=== PATIENT | female | born 1945 | race Caucasian/White ===

== ENCOUNTER 2017-04-29 13:17 | Inpatient (IN) ==
[2017-04-29] MEDS ORDERED: Naloxone 0.4 MG/ML INJ IVP PRN (16:11)
[2017-04-29] MEDS ORDERED: Acetaminophen 325 MG TABLET PO PRN (16:11)
[2017-04-29] MEDS ORDERED: Lacri-Lube 3.5 GM TUBE BOTH EYES PRN (16:17)
[2017-04-29 16:54] LABS: ABG Base Excess -3 mEq/L (-2 to 3); ABG HCO3 21 mEq/L (21-27); ABG Oxygen Saturation 95 % (95-98); ABG PCO2 33 mmHg (35-45); ABG PH 7.41 pH Units (7.32-7.45); ABG PO2 74 mmHg (85-104); ABG TCO2 22 mEq/L (20-26); Blood Gas Modality VC; Blood Gas PEEP 5 cm H2O; Blood Gas Respiration Rate 12; Blood Gas VT 500 cc
[2017-04-29] MEDS: FentaNYL (PF) 1,000 MCG in 0.9 % Sodium Chloride 80 ML IVC SCH (17:18)
--- NOTE | 2017-04-29 17:27 | Pulmonology History & Physical ---
Date of Encounter: 04/29/17 Time of Encounter: 04:35 Assessment and Plan (1) Acute respiratory failure Current visit: Yes Status: Acute Patient with acute respiratory failure and she was intubated for airway protection and she was found to be acidotic. Patient is unresponsive at this time and is not clear to me whether this postictal or medications. Patient remain on the mechanical invasive ventilation for now and since she is not requiring significant support we will await until find out more about pleural effusion and I have explained to the family she might need chest tube. I spent 45 min of Critical Care time with this patient. It involved decision making of high complexity to assess, manipulate, and support vital organ system failure and/or to prevent further life threatening deterioration of the patient' s condition. The time involved in the performance of separately reportable procedures was not counted toward critical care time. Qualifiers: Respiratory failure complication: hypoxia Qualified Code(s): J96.01 - Acute respiratory failure with hypoxia (2) Altered mental state Current visit: Yes Status: Acute This is an acute episode and differential diagnosis is broad and initial CT head is not significant however there is changes in her blood pressure and she remains unresponsive for that reason we will repeat CT chest and she might even need MRI and neurology consultation I have explained that to the family Bolgarry encephalopathy and even subclinical seizure is also in the differential diagnosis and patient will be on sedation if it is seizure related then that might help and would also consider EEG. Qualifiers: Altered mental status type: stupor Qualified Code(s): R40.1 - Stupor (3) Pleural effusion Current visit: Yes Status: Acute Bilateral pleural effusion which has been drained and suspect this could be malignant and possible chest tube placement. (4) Renal cell cancer Current visit: No Status: Acute Qualifiers: Laterality: left Qualified Code(s): C64.2 - Malignant neoplasm of left kidney, except renal pelvis (5) Hypertension Current visit: Yes Status: Chronic Is not clear to me whether this is related to intracranial pathology or stress related for that reason we will for now and treat accordingly. Qualifiers: Hypertension type: unspecified Qualified Code(s): I10 - Essential (primary ) hypertension (6) Lactic acid acidosis Current visit: Yes Status: Acute Even though sepsis is less likely I would empirically treat with broad-spectrum antibiotics and culture and if blood pressure drops then will give her fluid. Most likely this could be seizure related and will have a follow-up lactic acid and also check creatinine kinase for any evidence of rhabdomyolysis. History of Present Illness Chief complaint: Alter Mental status HPI: Ms. Mitchell is a 71 year old female that she is not able to give history because she is intubated and not responsive. This history is taken from the and the family at the bedside. Apparently patient was at her usual status until about 10 PM last night and the found her unresponsive this morning and need to convert to outside hospital. I was told patient had seizure and she was treated and then she was intubated for airway protection. When patient has arrived to ICU she is not following any commands. Patient has diagnosis of renal cell cancer according to the family and she had been having thoracentesis at least twice recently. Patient was not in any distress according to the family and they denies any productive cough or sputum. She was not suffering from any fever or chills. Past Med Surg Social Fam HX - Past Medical History Medical history: arthritis, cancer, diabetes, hyperlipidemia, hypertension Psychiatric history: no psych history - Social History Smoking Status: Former smoker Smokeless Tobacco Status: No Alcohol use: none Drug use: none - Family History Mother Living Status: Hx Family Cancer: Yes Brother Living Status: Hx Family Cancer: Yes Sister Hx Family Cancer: Yes Medications and Allergies Lisinopril [Zestril] 40 mg PO DAILY 02/17/17 [History] Multivit-Min/Iron Fum/Folic AC [Vcrzx-Kjtsyrt-Mxktpycc Tablet] 1 tab PO DAILY [History] Simvastatin [Zocor] 40 mg PO HS 02/17/17 [History] metFORMIN [Glucophage] 500 mg PO BIDWM 02/17/17 [History] Ondansetron [Zofran] 8 mg PO Q8HR PRN #90 tablet 03/24/17 [Rx] Promethazine [Phenergan] 25 mg PO Q8HR PRN #90 tablet 03/24/17 [Rx] LORazepam [Ativan] 0.5 mg PO BID PRN #60 tablet 04/22/17 [Rx] Megestrol Acetate [Megace] 400 mg PO BID #400 mls 04/22/17 [Rx] OxyCODONE Immed Rel [Roxicodone 5 MG] 10 mg PO BID PRN #60 tablet 04/22/17 [Rx] 3 Allergy/AdvReac Type Severity Reaction Status Date / Time No Known Allergies Allergy Verified 04/22/17 10:48 ROS unobtainable: due to endotracheal tube, due to mental status All Systems: A 10-system review of systems was performed and is negative for pertinent findings except as documented above in the HPI. Physical Examination Vital Signs: Vital Signs, Last 4 Hours Resp BP Pulse Ox 04/29/17 17:00 12 143/86 95 04/29/17 15:26 17 197/107 97 General appearance: comatose Eyes: nonicteric ENT: oropharynx moist Effort: normal Inspection: normal Auscultation: bilateral: diminished breath sounds Percussion: bilateral: dull Cardiovascular: regular rate and rhythm Gastrointestinal: normoactive bowel sounds, non-distended Extremities: no cyanosis, edema Results - Laboratory Findings ABG ABG pH 7.41 pH Units (7.32-7.45) 04/29/17 16:51 ABG pCO2 33 mmHg (35-45) L 04/29/17 16:51 ABG pO2 74 mmHg (85-104) L D 04/29/17 16:51 ABG O2 Saturation 95 % (95-98) 04/29/17 16:51 Abnormal lab findings: Abnormal lab results ABG pCO2 33 mmHg (35-45) L 04/29/17 16:51 ABG pO2 74 mmHg (85-104) L D 04/29/17 16:51 ABG Base Excess -3 mEq/L (-2 to 3) L 04/29/17 16:51 - Diagnostic Findings CT scan - chest: report reviewed, image reviewed
[2017-04-29] MEDS ORDERED: Ringers Solution, Lactated 1,000 ML IVC ONE (19:00)
[2017-04-29] MEDS ORDERED: Ringers Solution, Lactated 1,000 ML ONE (19:03)
[2017-04-29] MEDS ORDERED: D5% in Water 1,000 ML IVC PRN (19:09)
[2017-04-29] MEDS ORDERED: *HR* Dextrose 50 % in Water (Syg) 50 ML SYRINGE IVP PRN (19:09)
[2017-04-29] MEDS ORDERED: Dextrose Gel 15 GM/37.5 ML TUBE PO PRN ×2 (19:09)
[2017-04-29] MEDS: Piperacillin/Tazobactam 3.375 GM/200 ML BAG IVPB SCH (19:18)
[2017-04-29] MEDS ORDERED: 0.9 % Sodium Chloride 1,000 ML ONE (19:19)
[2017-04-29] MEDS: Ringers Solution, Lactated 1,000 ML IVC SCH (21:00)
[2017-04-29] MEDS ORDERED: 0.9 % Sodium Chloride 1,000 ML IVC ONE (21:45)
[2017-04-29] MEDS: Insulin LISPRO 300 UNITS/3 ML VIAL SQ SCH (21:46)
[2017-04-29] MEDS: Chlorhexidine Rinse 15 ML MOUTHWASH MM SCH (22:02)
[2017-04-29] MEDS: *HR* Heparin 5,000 UNIT/ML VIAL SQ SCH (22:02)
[2017-04-29] MEDS: Lacri-Lube 3.5 GM TUBE BOTH EYES SCH (22:02)
[2017-04-30] MEDS: Lacri-Lube 3.5 GM TUBE BOTH EYES SCH ×6 (00:17→19:40)
[2017-04-30] MEDS: Insulin LISPRO 300 UNITS/3 ML VIAL SQ SCH ×6 (00:22→19:41)
[2017-04-30] MEDS: Ringers Solution, Lactated 1,000 ML IVC SCH ×4 (01:04→22:15)
[2017-04-30] MEDS: Piperacillin/Tazobactam 3.375 GM/200 ML BAG IVPB SCH ×3 (03:29→19:13)
[2017-04-30 04:06] LABS: ABG Base Excess -1 mEq/L (-2 to 3); ABG HCO3 22 mEq/L (21-27); ABG Oxygen Saturation 96 % (95-98); ABG PCO2 33 mmHg (35-45); ABG PH 7.44 pH Units (7.32-7.45); ABG PO2 78 mmHg (85-104); ABG TCO2 23 mEq/L (20-26); Blood Gas Modality VC; Blood Gas PEEP 5 cm H2O; Blood Gas Respiration Rate 12; Blood Gas VT 500 cc
[2017-04-30 04:56] LABS: Basophils % 0.2 %; Hematocrit 33.1 % (35.3-44.9); Hemoglobin 10.1 g/dL (11.5-15.4); Immature Granulocytes % 0.3 % (0-4); Lymphocytes # 1.7 K/mcL (0.6-4.6); Lymphocytes % 27.5 %; Mean Corpuscular HGB Conc 30.5 g/dL (31.6-35.5); Mean Corpuscular Hemoglobin 26.8 pg (28.0-33.3); Mean Corpuscular Volume 87.8 fL (83.0-100.0); Mean Platelet Volume 9.7 fL (9.4-12.4); Monocytes # 0.5 K/mcL (0.0-1.3); Monocytes % 8.5 %; Neutrophils # 3.8 K/mcL (1.6-8.9); Platelet Count 154 K/mcL (140-400); Red Blood Count 3.77 M/mcL (3.82-4.97); Red Cell Distribution Width 26.8 % (11.5-14.5); Segmented Neutrophils % 63.5 %
[2017-04-30 05:08] LABS: Alanine Aminotransferase 11 Units/L (7-52); Albumin 2.4 g/dL (3.5-5.7); Alkaline Phosphatase 66 Units/L (34-104); Aspartate Amino Transferase 19 Units/L (13-39); BUN/Creatinine Ratio 15 (6-26); Bilirubin,Total 0.6 mg/dL (0.3-1.0); Blood Urea Nitrogen 11 mg/dL (8-23); Calcium 7.1 mg/dL (8.6-10.3); Carbon Dioxide 24 mEq/L (23-29); Chloride 111 mEq/L (98-107); Globulin 2.4 g/dL (2.4-3.5); Glucose 90 mg/dL (70-105); Osmolality,Calculated 293 (280-300); Potassium 3.5 mEq/L (3.5-5.1); Sodium 142 mEq/L (136-145); Total Protein 4.8 g/dL (6.4-8.9); eGFR For African Americans > 60 (> 60); eGFR For Non-African Americans > 60 (> 60)
[2017-04-30 05:23] LABS: Acanthocytes 1+ (Not Present); Anisocytosis 2+ (Not Present); Macrocytosis Present (Not Present); Polychromasia 1+ (Not Present)
[2017-04-30 05:24] LABS: Burr Cells 2+ (Not Present); Platelet Estimate Normal (Normal)
[2017-04-30 05:25] LABS: Poikilocytosis 1+ (Not Present)
[2017-04-30] MEDS: *HR* Heparin 5,000 UNIT/ML VIAL SQ SCH ×3 (06:11→22:17)
[2017-04-30] MEDS: Chlorhexidine Rinse 15 ML MOUTHWASH MM SCH ×2 (08:06→21:14)
[2017-04-30] MEDS: Pantoprazole 40 MG VIAL IVP SCH (08:07)
--- NOTE | 2017-04-30 10:22 | Pulmonology Progress Note ---
Date of Encounter: 04/30/17 Time of Encounter: 07:30 Assessment and Plan (1) Acute respiratory failure Current Visit: Yes Status: Acute Patient with acute respiratory failure and she was intubated for airway protection and she was found to be acidotic. Patient is unresponsive at this time and is not clear to me whether this postictal or medications. Patient remain on the mechanical invasive ventilation for now and since she is not requiring significant support we will await until find out more about pleural effusion and I have explained to the family she might need chest tube. I spent 45 min of Critical Care time with this patient. It involved decision making of high complexity to assess, manipulate, and support vital organ system failure and/or to prevent further life threatening deterioration of the patient' s condition. The time involved in the performance of separately reportable procedures was not counted toward critical care time. 04/30 patient remain on the ventilator however she is doing better and spontaneous breathing trial and initiated and possible extubation depends on the transportation for the MRI. Qualifiers: Respiratory failure complication: hypoxia Qualified Code(s): J96.01 - Acute respiratory failure with hypoxia (2) Altered mental state Current Visit: Yes Status: Resolved This is an acute episode and differential diagnosis is broad and initial CT head is not significant however there is changes in her blood pressure and she remains unresponsive for that reason we will repeat CT chest and she might even need MRI and neurology consultation I have explained that to the family Bolgarry encephalopathy and even subclinical seizure is also in the differential diagnosis and patient will be on sedation if it is seizure related then that might help and would also consider EEG. 04/30 has improved significantly and due to her acute presentation and stroke is still in the differential diagnosis and also history of malignancy to rule out any metastasis MRIs been ordered. Consider neurology consultation Qualifiers: Altered mental status type: stupor Qualified Code(s): R40.1 - Stupor (3) Pleural effusion Current Visit: Yes Status: Acute Bilateral pleural effusion which has been drained and suspect this could be malignant and possible chest tube placement. 04/30 she since she is not in distress will monitor and plan for thoracentesis (4) Renal cell cancer Current Visit: No Status: Acute Qualifiers: Laterality: left Qualified Code(s): C64.2 - Malignant neoplasm of left kidney, except renal pelvis (5) Hypertension Current Visit: Yes Status: Chronic Is not clear to me whether this is related to intracranial pathology or stress related for that reason we will for now and treat accordingly. Qualifiers: Hypertension type: unspecified Qualified Code(s): I10 - Essential (primary ) hypertension (6) Lactic acid acidosis Current Visit: Yes Status: Acute Even though sepsis is less likely I would empirically treat with broad-spectrum antibiotics and culture and if blood pressure drops then will give her fluid. Most likely this could be seizure related and will have a follow-up lactic acid and also check creatinine kinase for any evidence of rhabdomyolysis. Subjective Principal diagnosis: Altered mental status Interval history: Patient is awake now and follows commands Objective PUL Vital signs: Last Vital Signs Temp 98.6 F 04/30/17 08:41 Pulse 64 04/30/17 08:00 Resp 14 04/30/17 08:00 BP 137/72 04/30/17 08:00 Pulse Ox 93 04/30/17 08:00 General appearance: no acute distress Eyes: nonicteric Neck: supple Effort: normal Auscultation: bilateral: diminished breath sounds Percussion: left: not dull, right: dull Cardiovascular: regular rate and rhythm Gastrointestinal: normoactive bowel sounds, non-distended Extremities: no cyanosis, edema normal mental status, non-focal exam anxious Ventilator Settings Ventilator Settings: Ventilator Settings, Last 8 Hours Ventilator Mode VC+ Ventilator Mode VC+ Ventilator Mode VC+ Ventilator Mode VC+ Ventilator Mode VC+ Ventilator Mode VC+ Ventilator Tidal Volume 500 Setting Ventilator Tidal Volume 500 Setting Ventilator Tidal Volume 500 Setting Ventilator Tidal Volume 500 Setting Ventilator Tidal Volume 500 Setting Ventilator Tidal Volume 500 Setting Ventilator Respiratory Rate 12 Setting Ventilator Respiratory Rate 12 Setting Ventilator Respiratory Rate 12 Setting Ventilator Respiratory Rate 12 Setting Ventilator Respiratory Rate 12 Setting Ventilator Respiratory Rate 12 Setting Actual Respiratory Rate 12 Actual Respiratory Rate 12 Actual Respiratory Rate 12 Actual Respiratory Rate 12 Actual Respiratory Rate 12 Positive End Expiratory 5 Pressure Positive End Expiratory 5 Pressure Positive End Expiratory 5 Pressure Positive End Expiratory 5 Pressure Positive End Expiratory 5 Pressure Positive End Expiratory 5 Pressure Peak Inspiratory Airway 22 Pressure Peak Inspiratory Airway 21 Pressure Peak Inspiratory Airway 22 Pressure Peak Inspiratory Airway 21 Pressure Peak Inspiratory Airway 23 Pressure Peak Inspiratory Airway 23 Pressure Results - Laboratory Findings CBC and BMP: 04/30/17 04:40 04/30/17 04:40 ABG ABG pH 7.44 pH Units (7.32-7.45) 04/30/17 04:03 ABG pCO2 33 mmHg (35-45) L 04/30/17 04:03 ABG pO2 78 mmHg (85-104) L 04/30/17 04:03 ABG O2 Saturation 96 % (95-98) 04/30/17 04:03 Abnormal lab findings: Abnormal lab results RBC 3.77 M/mcL (3.82-4.97) L 04/30/17 04:40 Hgb 10.1 g/dL (11.5-15.4) L D 04/30/17 04:40 Hct 33.1 % (35.3-44.9) L 04/30/17 04:40 MCH 26.8 pg (28.0-33.3) L 04/30/17 04:40 MCHC 30.5 g/dL (31.6-35.5) L 04/30/17 04:40 RDW 26.8 % (11.5-14.5) H 04/30/17 04:40 Polychromasia 1+ (Not Present) A 04/30/17 04:40 Poikilocytosis 1+ (Not Present) A 04/30/17 04:40 Anisocytosis 2+ (Not Present) A 04/30/17 04:40 Macrocytosis Present (Not Present) A 04/30/17 04:40 Zita Cells 2+ (Not Present) A 04/30/17 04:40 Acanthocytes (Spur) 1+ (Not Present) A 04/30/17 04:40 ABG pCO2 33 mmHg (35-45) L 04/30/17 04:03 ABG pO2 78 mmHg (85-104) L 04/30/17 04:03 Chloride 111 mEq/L (98-107) H 04/30/17 04:40 Calcium 7.1 mg/dL (8.6-10.3) L 04/30/17 04:40 Troponin I 0.05 ng/mL (< 0.04) H* 04/30/17 04:40 Serum Total Protein 4.8 g/dL (6.4-8.9) L 04/30/17 04:40 Albumin 2.4 g/dL (3.5-5.7) L 04/30/17 04:40 Albumin/Globulin Ratio 1.0 (1.1-2.2) L 04/30/17 04:40 - Clinical Findings Intake & Output: Intake & Output 04/29/17 04/30/17 04/30/17 23:59 07:59 15:59 Intake Total 1200 / 1200 2235 / 2235 Output Total 150 / 150 475 / 475 50 / 50 Balance 1050 / 1050 1760 / 1760 -50 / -50 Weight 89.9 kg 89.7 kg Consult Discharge Plan - Plan Referrals: Zuleima Starks, PLC TECHNICIAN [Primary Care Provider] -
[2017-04-30] MEDS: Dexmedetomidine HCl 400 MCG/100 ML MLS IVC SCH (10:28)
[2017-04-30] MEDS: FentaNYL (PF) 1,000 MCG in 0.9 % Sodium Chloride 80 ML IVC SCH (19:14)
[2017-05-01] MEDS: Insulin LISPRO 300 UNITS/3 ML VIAL SQ SCH ×6 (00:43→19:46)
[2017-05-01] MEDS: Lacri-Lube 3.5 GM TUBE BOTH EYES SCH ×6 (00:43→19:46)
[2017-05-01] MEDS: Piperacillin/Tazobactam 3.375 GM/200 ML BAG IVPB SCH ×3 (02:22→18:22)
[2017-05-01] MEDS: Dexmedetomidine HCl 400 MCG/100 ML MLS IVC SCH ×2 (02:22→19:46)
[2017-05-01] MEDS: FentaNYL (PF) 1,000 MCG in 0.9 % Sodium Chloride 80 ML IVC SCH (02:28)
[2017-05-01 04:00] LABS: ABG Base Excess -1 mEq/L (-2 to 3); ABG HCO3 23 mEq/L (21-27); ABG Oxygen Saturation 96 % (95-98); ABG PCO2 32 mmHg (35-45); ABG PH 7.46 pH Units (7.32-7.45); ABG PO2 79 mmHg (85-104); ABG TCO2 24 mEq/L (20-26); Blood Gas Modality VC; Blood Gas PEEP 5 cm H2O; Blood Gas Respiration Rate 12; Blood Gas VT 500 cc
[2017-05-01] MEDS: Ringers Solution, Lactated 1,000 ML IVC SCH ×2 (04:29→15:15)
[2017-05-01] MEDS: *HR* Heparin 5,000 UNIT/ML VIAL SQ SCH ×3 (05:43→22:28)
--- NOTE | 2017-05-01 08:30 | Pulmonology Progress Note ---
<Rivera Carrasco - Last Filed: 05/01/17 09:21> Date of Encounter: 05/01/17 Time of Encounter: 07:00 Assessment and Plan (1) Altered mental state Current Visit: Yes Status: Resolved Initial head CT scan unremarkable. Possibly due to stroke or metastasis; patient has known hx. of RCC Patient's AMS appears to have resolved; much more responsive today than yesterday. -Possible EEG and MRI in the future to detemine etiology; r/o mets to brain -Neurology consulted; would appreciate recommendations. Qualifiers: Altered mental status type: stupor Qualified Code(s): R40.1 - Stupor (2) Pleural effusion Current Visit: No Status: Acute B/L pleural effusion which has been drained -Suspect this could be malignant; possible chest tube placement. -No current respiratory distress -Plan for thoracentesis (3) Hypertension Current Visit: Yes Status: Chronic Patient's last BP was 167/75. Qualifiers: Qualified Code(s): I10 - Essential (primary) hypertension (4) Renal cell cancer Current Visit: No Status: Acute Patient has known hx of RCC Qualifiers: Qualified Code(s): C64.9 - Malignant neoplasm of unspecified kidney, except renal pelvis (5) Lactic acid acidosis Current Visit: Yes Status: Acute Empirically being treated with zosyn Subjective Principal diagnosis: Altered mental status Interval history: Patient seen and examined at bedside this morning. Patient appears much more alert than she did yesterday. Plan is to extubate patient today. Objective PUL Vital signs: Last Vital Signs Temp 97.8 F 05/01/17 03:25 Pulse 60 05/01/17 06:00 Resp 25 05/01/17 06:13 BP 175/77 05/01/17 06:00 Pulse Ox 97 05/01/17 06:13 General appearance: no acute distress Eyes: nonicteric ENT: oropharynx moist Effort: normal Auscultation: bilateral: diminished breath sounds Cardiovascular: regular rate and rhythm Integumentary: normal Extremities: no cyanosis normal mental status Ventilator Settings Ventilator Settings: Ventilator Settings, Last 8 Hours Ventilator Mode VC+ Ventilator Mode VC+ Ventilator Mode VC+ Ventilator Mode VC+ Ventilator Mode VC+ Ventilator Tidal Volume 500 Setting Ventilator Tidal Volume 500 Setting Ventilator Tidal Volume 500 Setting Ventilator Tidal Volume 500 Setting Ventilator Tidal Volume 500 Setting Ventilator Respiratory Rate 12 Setting Ventilator Respiratory Rate 12 Setting Ventilator Respiratory Rate 12 Setting Ventilator Respiratory Rate 12 Setting Ventilator Respiratory Rate 12 Setting Actual Respiratory Rate 24 Actual Respiratory Rate 15 Actual Respiratory Rate 19 Positive End Expiratory 5 Pressure Positive End Expiratory 5 Pressure Positive End Expiratory 5 Pressure Positive End Expiratory 5 Pressure Positive End Expiratory 5 Pressure Peak Inspiratory Airway 18 Pressure Peak Inspiratory Airway 22 Pressure Peak Inspiratory Airway 22 Pressure Peak Inspiratory Airway 29 Pressure Results - Laboratory Findings CBC and BMP: 04/30/17 04:40 04/30/17 04:40 ABG ABG pH 7.46 pH Units (7.32-7.45) H 05/01/17 03:54 ABG pCO2 32 mmHg (35-45) L 05/01/17 03:54 ABG pO2 79 mmHg (85-104) L 05/01/17 03:54 ABG O2 Saturation 96 % (95-98) 05/01/17 03:54 Abnormal lab findings: Abnormal lab results RBC 3.77 M/mcL (3.82-4.97) L 04/30/17 04:40 Hgb 10.1 g/dL (11.5-15.4) L D 04/30/17 04:40 Hct 33.1 % (35.3-44.9) L 04/30/17 04:40 MCH 26.8 pg (28.0-33.3) L 04/30/17 04:40 MCHC 30.5 g/dL (31.6-35.5) L 04/30/17 04:40 RDW 26.8 % (11.5-14.5) H 04/30/17 04:40 Polychromasia 1+ (Not Present) A 04/30/17 04:40 Poikilocytosis 1+ (Not Present) A 04/30/17 04:40 Anisocytosis 2+ (Not Present) A 04/30/17 04:40 Macrocytosis Present (Not Present) A 04/30/17 04:40 Zita Cells 2+ (Not Present) A 04/30/17 04:40 Acanthocytes (Spur) 1+ (Not Present) A 04/30/17 04:40 ABG pH 7.46 pH Units (7.32-7.45) H 05/01/17 03:54 ABG pCO2 32 mmHg (35-45) L 05/01/17 03:54 ABG pO2 79 mmHg (85-104) L 05/01/17 03:54 Chloride 111 mEq/L (98-107) H 04/30/17 04:40 Calcium 7.1 mg/dL (8.6-10.3) L 04/30/17 04:40 Troponin I 0.05 ng/mL (< 0.04) H* 04/30/17 04:40 Serum Total Protein 4.8 g/dL (6.4-8.9) L 04/30/17 04:40 Albumin 2.4 g/dL (3.5-5.7) L 04/30/17 04:40 Albumin/Globulin Ratio 1.0 (1.1-2.2) L 04/30/17 04:40 - Clinical Findings Intake & Output: Intake & Output 04/30/17 05/01/17 05/01/17 23:59 07:59 15:59 Intake Total 1300 / 1300 1245 / 1245 600 / 600 Output Total 575 / 575 470 / 470 Balance 725 / 725 775 / 775 600 / 600 Weight 88.6 kg Consult Discharge Plan - Plan Referrals: Zuleima Starks, MATERIALS MANAGEMENT SUPERVISOR [Primary Care Provider] - <Husam Ramos - Last Filed: 05/01/17 09:59> Date of Encounter: 05/01/17 Assessment and Plan (1) Acute respiratory failure Current Visit: Yes Status: Acute Qualifiers: Respiratory failure complication: hypoxia Qualified Code(s): J96.01 - Acute respiratory failure with hypoxia (2) Altered mental state Current Visit: Yes Status: Resolved Qualifiers: Altered mental status type: stupor Qualified Code(s): R40.1 - Stupor (3) Pleural effusion Current Visit: No Status: Acute (4) Renal cell cancer Current Visit: No Status: Acute Qualifiers: Qualified Code(s): C64.9 - Malignant neoplasm of unspecified kidney, except renal pelvis (5) Hypertension Current Visit: Yes Status: Chronic Qualifiers: Qualified Code(s): I10 - Essential (primary) hypertension (6) Lactic acid acidosis Current Visit: Yes Status: Acute Objective PUL Vital signs: Last Vital Signs Temp 98.9 F 05/01/17 07:15 Pulse 53 05/01/17 09:00 Resp 16 05/01/17 09:00 BP 166/74 05/01/17 09:00 Pulse Ox 94 05/01/17 09:00 Ventilator Settings Ventilator Settings: Ventilator Settings, Last 8 Hours Ventilator Mode CPAP Ventilator Mode CPAP Ventilator Mode VC+ Ventilator Mode VC+ Ventilator Mode VC+ Ventilator Mode VC+ Ventilator Mode VC+ Ventilator Tidal Volume 500 Setting Ventilator Tidal Volume 500 Setting Ventilator Tidal Volume 500 Setting Ventilator Tidal Volume 500 Setting Ventilator Tidal Volume 500 Setting Ventilator Respiratory Rate 12 Setting Ventilator Respiratory Rate 12 Setting Ventilator Respiratory Rate 12 Setting Ventilator Respiratory Rate 12 Setting Ventilator Respiratory Rate 12 Setting Actual Respiratory Rate 20 Actual Respiratory Rate 15 Actual Respiratory Rate 24 Actual Respiratory Rate 15 Actual Respiratory Rate 19 Positive End Expiratory 5 Pressure Positive End Expiratory 5 Pressure Positive End Expiratory 5 Pressure Positive End Expiratory 5 Pressure Positive End Expiratory 5 Pressure Positive End Expiratory 5 Pressure Positive End Expiratory 5 Pressure Peak Inspiratory Airway 16 Pressure Peak Inspiratory Airway 15 Pressure Peak Inspiratory Airway 18 Pressure Peak Inspiratory Airway 22 Pressure Peak Inspiratory Airway 22 Pressure Peak Inspiratory Airway 29 Pressure Results - Laboratory Findings CBC and BMP: 04/30/17 04:40 04/30/17 04:40 ABG ABG pH 7.46 pH Units (7.32-7.45) H 05/01/17 03:54 ABG pCO2 32 mmHg (35-45) L 05/01/17 03:54 ABG pO2 79 mmHg (85-104) L 05/01/17 03:54 ABG O2 Saturation 96 % (95-98) 05/01/17 03:54 Abnormal lab findings: Abnormal lab results RBC 3.77 M/mcL (3.82-4.97) L 04/30/17 04:40 Hgb 10.1 g/dL (11.5-15.4) L D 04/30/17 04:40 Hct 33.1 % (35.3-44.9) L 04/30/17 04:40 MCH 26.8 pg (28.0-33.3) L 04/30/17 04:40 MCHC 30.5 g/dL (31.6-35.5) L 04/30/17 04:40 RDW 26.8 % (11.5-14.5) H 04/30/17 04:40 Polychromasia 1+ (Not Present) A 04/30/17 04:40 Poikilocytosis 1+ (Not Present) A 04/30/17 04:40 Anisocytosis 2+ (Not Present) A 04/30/17 04:40 Macrocytosis Present (Not Present) A 04/30/17 04:40 [place] Cells 2+ (Not Present) A 04/30/17 04:40 Acanthocytes (Spur) 1+ (Not Present) A 04/30/17 04:40 ABG pH 7.46 pH Units (7.32-7.45) H 05/01/17 03:54 ABG pCO2 32 mmHg (35-45) L 05/01/17 03:54 ABG pO2 79 mmHg (85-104) L 05/01/17 03:54 Chloride 111 mEq/L (98-107) H 04/30/17 04:40 Calcium 7.1 mg/dL (8.6-10.3) L 04/30/17 04:40 Troponin I 0.05 ng/mL (< 0.04) H* 04/30/17 04:40 Serum Total Protein 4.8 g/dL (6.4-8.9) L 04/30/17 04:40 Albumin 2.4 g/dL (3.5-5.7) L 04/30/17 04:40 Albumin/Globulin Ratio 1.0 (1.1-2.2) L 04/30/17 04:40 - Microbiology Findings Microbiology Findings: Microbiology, Last 48 Hours 04/29/17 17:32 Blood Culture - Preliminary Peripheral Venipuncture No growth. 04/29/17 17:32 Blood Culture - Preliminary Peripheral Venipuncture No growth. - Clinical Findings Intake & Output: Intake & Output 04/30/17 05/01/17 05/01/17 23:59 07:59 15:59 Intake Total 1300 / 1300 1305 / 1305 628 / 628 Output Total 575 / 575 795 / 795 Balance 725 / 725 510 / 510 628 / 628 Weight 88.6 kg - Attending Attestation I examined this patient and my medical decision-making was reviewed with the Resident Physician. I agree with the documented findings, disposition and treatment plan as described except to the extent set forth below. Patient seen and examined. Labs, radiology, chart personally reviewed. Agree with resident's history and physical, assessment, plan with following comments: HISTORIC INTERPRETER: Patient follows commands, much improved and neurology consultation Pulmonary: Acceptable oxygenation and ventilation. Patient extubated successfully. Pleural effusion may need Pleurx catheter. Cardiovascular: stable GI: Nutrition per dietary and GI prophylaxis per routine Heme: DVT prophylaxis per routine. Patient will need to follow up with her oncologist ID: Continue antibiotics and plan to de-escalation. Renal; urine out put and renal funtion reviewed Endorcine: blood glucose is monitored Lines: all lines checked and no evidence of infections Skin: skin care to prevent pressure ulcers per nursing routine care She will today and possible transfer to floor in next 24 hours
[2017-05-01] MEDS: Chlorhexidine Rinse 15 ML MOUTHWASH MM SCH ×2 (08:43→19:47)
[2017-05-01] MEDS: Pantoprazole 40 MG VIAL IVP SCH (08:43)
--- NOTE | 2017-05-01 12:38 | Neurology - Consult Note ---
Date of Encounter: 05/02/17 Time of Encounter: 10:50 Assessment and Plan (1) Encephalopathy Current Visit: Yes Status: Acute This patient who apparently had a history of renal cell cancer was admitted with acute unresponsiveness intubated earlier and now she is extubated and back to her baseline she seems to be alert and awake and oriented. Not able to determine that exactly what has happened though it was mentioned at outside emergency room that she may had a seizure but it was not witnessed by anyone in the family She did have a history of renal cell cancer and had a chemotherapy earlier but again does not seems to be related On today's examination I did not find any focal motor deficit to be suggestive of stroke Though it is possible that she may had a seizure and was in the prolonged postictal state, but again no redness and no typical signs symptoms of the seizure Regardless, CT scan was negative earlier for any acute bleed I would suggest getting an MRI of the brain with and without contrast suspect with a history of renal cancer to make sure that she did not have any metastatic disease or any other intracranial abnormality At the same time also get an EEG to look for any interictal abnormalities Check for any underlying metabolic abnormalities that may be causing and contributing to her symptoms Would not recommend starting on any anticonvulsant medication at this time, until any abnormality seen on EEG History of Present Illness HPI: Ms. Mitchell is a 71 year old female admitted with unresponsiveness, as per records she was in usual status found her unresponsive in the morning, she was seen at outside hospital was told patient had seizure and she was treated and then she was intubated for airway protection. When patient has arrived to ICU she is not following any commands. Patient has diagnosis of renal cell cancer according to the family and she had been having thoracentesis at least twice recently. there were no fever or chills. Later patient was extubated she is alert awake and oriented seemed to be back to her baseline she is not able to remember any of those events Past Med Surg Social Fam HX - Past Medical History Medical history: arthritis, cancer, diabetes, hyperlipidemia, hypertension Psychiatric history: no psych history - Social History Smoking Status: Former smoker Smokeless Tobacco Status: No Alcohol use: none Drug use: none - Family History Mother Living Status: Hx Family Cancer: Yes Brother Living Status: Hx Family Cancer: Yes Sister Hx Family Cancer: Yes Medications and Allergies Lisinopril [Zestril] 40 mg PO DAILY 02/17/17 [History] Multivit-Min/Iron Fum/Folic AC [Khmxr-Qsyfwcx-Kozyyhdc Tablet] 1 tab PO DAILY [History] Simvastatin [Zocor] 40 mg PO HS 02/17/17 [History] metFORMIN [Glucophage] 500 mg PO BIDWM 02/17/17 [History] Ondansetron [Zofran] 8 mg PO Q8HR PRN #90 tablet 03/24/17 [Rx] Promethazine [Phenergan] 25 mg PO Q8HR PRN #90 tablet 03/24/17 [Rx] LORazepam [Ativan] 0.5 mg PO BID PRN #60 tablet 04/22/17 [Rx] Megestrol Acetate [Megace] 400 mg PO BID #400 mls 04/22/17 [Rx] OxyCODONE Immed Rel [Roxicodone 5 MG] 10 mg PO BID PRN #60 tablet 04/22/17 [Rx] 3 Allergy/AdvReac Type Severity Reaction Status Date / Time No Known Allergies Allergy Verified 04/22/17 10:48 All Systems: A 10-system review of systems was performed and is negative for pertinent findings except as documented above in the HPI. Physical Examination - Vital Signs Vital Signs: Initial Vital Signs Resp BP Pulse Ox 17 197/107 97 04/29/17 15:26 04/29/17 15:26 04/29/17 15:26 - Constitutional General appearance: comfortable - Neurologic Sensorimotor examination: intact Detailed motor examination: grossly full strength in all extremities Motor examination - right side: 5/5: deltoids, biceps, triceps, wrist flexion, wrist extension, venture capitalist, hip flexors, tibialis Anterior, quadriceps, toe extension (EHL), plantarflexion Motor examination - left side: 5/5: deltoids, biceps, triceps, wrist flexion, wrist extension, hip flexors, venture capitalist, quadriceps, tibialis Anterior, toe extension (EHL), plantarflexion Detailed sensory examination: intact Reflexes: Biceps: 1+, Triceps: 1+, Brachioradialis: 1+, Patella: 1+, Achilles: 1 + Mental Status Examination: awake, alert, oriented to person, oriented to place, oriented to time, follows commands appropriately, answers questions appropriately, no agnosia, no aphasia, no aproxia Cranial nerve examination: PERRL, EOMI, visual morales intact, corneal reflexes brisk symmetrically, sensory to face intact, mastication intact, no facial asymmetry is present, no dysarthria, hearing is intact symmetrically, soft palate elevates bilaterally upon phonation, gag reflex intact, flexes SCM and trapezius muscles symmetrically with full power, tongue protrudes midline, no atrophy or facial fasiculations present Cerebellar examination: no dysmetria Results - Laboratory Findings CBC and BMP: 05/02/17 02:30 05/02/17 02:30 Abnormal lab findings: Abnormal lab results RBC 3.77 M/mcL (3.82-4.97) L 04/30/17 04:40 Hgb 10.1 g/dL (11.5-15.4) L D 04/30/17 04:40 Hct 33.1 % (35.3-44.9) L 04/30/17 04:40 MCH 26.8 pg (28.0-33.3) L 04/30/17 04:40 MCHC 30.5 g/dL (31.6-35.5) L 04/30/17 04:40 RDW 26.8 % (11.5-14.5) H 04/30/17 04:40 Polychromasia 1+ (Not Present) A 04/30/17 04:40 Poikilocytosis 1+ (Not Present) A 04/30/17 04:40 Anisocytosis 2+ (Not Present) A 04/30/17 04:40 Macrocytosis Present (Not Present) A 04/30/17 04:40 Zita Cells 2+ (Not Present) A 04/30/17 04:40 Acanthocytes (Spur) 1+ (Not Present) A 04/30/17 04:40 ABG pH 7.46 pH Units (7.32-7.45) H 05/01/17 03:54 ABG pCO2 32 mmHg (35-45) L 05/01/17 03:54 ABG pO2 79 mmHg (85-104) L 05/01/17 03:54 Chloride 111 mEq/L (98-107) H 04/30/17 04:40 Calcium 7.1 mg/dL (8.6-10.3) L 04/30/17 04:40 Troponin I 0.05 ng/mL (< 0.04) H* 04/30/17 04:40 Serum Total Protein 4.8 g/dL (6.4-8.9) L 04/30/17 04:40 Albumin 2.4 g/dL (3.5-5.7) L 04/30/17 04:40 Albumin/Globulin Ratio 1.0 (1.1-2.2) L 04/30/17 04:40 - Diagnostic Findings Additional findings: zct negative Consult Discharge Plan - Plan Referrals: Zuleima Starks, ALUMINUM WELDER [Primary Care Provider] -
[2017-05-02] MEDS: Piperacillin/Tazobactam 3.375 GM/200 ML BAG IVPB SCH ×3 (02:23→18:50)
[2017-05-02] MEDS: Insulin LISPRO 300 UNITS/3 ML VIAL SQ SCH ×6 (02:23→21:10)
[2017-05-02] MEDS: Lacri-Lube 3.5 GM TUBE BOTH EYES SCH ×6 (02:24→21:10)
[2017-05-02 02:55] LABS: Basophils % 0.3 %; Eosinophils % 0.3 %; Hemoglobin 9.8 g/dL (11.5-15.4); Immature Granulocytes % 0.5 % (0-4); Lymphocytes # 1.9 K/mcL (0.6-4.6); Lymphocytes % 30.9 %; Mean Corpuscular HGB Conc 29.7 g/dL (31.6-35.5); Mean Corpuscular Hemoglobin 26.2 pg (28.0-33.3); Mean Corpuscular Volume 88.2 fL (83.0-100.0); Mean Platelet Volume 10.9 fL (9.4-12.4); Monocytes # 0.5 K/mcL (0.0-1.3); Monocytes % 7.5 %; Neutrophils # 3.7 K/mcL (1.6-8.9); Nucleated Red Blood Cells 0.3 /100 WBC (0); Platelet Count 177 K/mcL (140-400); Red Blood Count 3.74 M/mcL (3.82-4.97); Red Cell Distribution Width 26.9 % (11.5-14.5); Segmented Neutrophils % 60.5 %
[2017-05-02 03:10] LABS: BUN/Creatinine Ratio 11 (6-26); Blood Urea Nitrogen 7 mg/dL (8-23); Calcium 7.4 mg/dL (8.6-10.3); Carbon Dioxide 24 mEq/L (23-29); Chloride 113 mEq/L (98-107); Glucose 74 mg/dL (70-105); Osmolality,Calculated 301 (280-300); Potassium 2.8 mEq/L (3.5-5.1); Sodium 147 mEq/L (136-145); eGFR For African Americans > 60 (> 60); eGFR For Non-African Americans > 60 (> 60)
[2017-05-02 03:34] LABS: Anisocytosis 2+ (Not Present); Platelet Estimate Normal (Normal); Polychromasia 1+ (Not Present)
[2017-05-02] MEDS: Ringers Solution, Lactated 1,000 ML IVC SCH (04:04)
[2017-05-02] MEDS ORDERED: Potassium Chloride 40 MEQ, Lidocaine 1% 2 ML in D5% in Water 500 ML IVPB ONE (04:28)
[2017-05-02] MEDS: *HR* Heparin 5,000 UNIT/ML VIAL SQ SCH ×3 (05:52→21:07)
--- NOTE | 2017-05-02 06:56 | Pulmonology Progress Note ---
Date of Encounter: 05/02/17 Time of Encounter: 06:56 Assessment and Plan (1) Acute respiratory failure Current Visit: Yes Status: Acute Patient was seen and evaluated and case discussed on multidisciplinary rounds in the intensive care unit Patient presented with altered mental status requiring intubation she has been successfully liberated from the ventilator and has excellent gas exchange on minimal supplemental oxygen which will be weaned to keep saturation around 92%. She does have bilateral pleural effusions and could consider Pleurx catheter as needed although I do not think that is clinically important right now Qualifiers: Respiratory failure complication: hypoxia Qualified Code(s): J96.01 - Acute respiratory failure with hypoxia (2) Renal cell cancer Current Visit: No Status: Acute Continue to follow outpatient with oncology Qualifiers: Qualified Code(s): C64.9 - Malignant neoplasm of unspecified kidney, except renal pelvis (3) Pleural effusion Current Visit: No Status: Acute Stable symptoms right now minimal oxygen requirements consider Pleurx down the line if needed (4) Hypertension Current Visit: Yes Status: Chronic Blood pressure is elevated today and we will resume her home antihypertensive regimen Qualifiers: Qualified Code(s): I10 - Essential (primary) hypertension (5) Lactic acid acidosis Current Visit: Yes Status: Acute This is resolved there is concern for sepsis and she was started on broad- spectrum antimicrobials think this is less likely and we will stop antibiotics today (6) Hypokalemia Current Visit: No Status: Acute Patient is receiving active supplementation repeat chemistry in the afternoon goal around 4 (7) Encephalopathy Current Visit: Yes Status: Acute This is a unclear etiology but possibly a seizure. Neurology has been consulted plan for MRI today she does not have a focal neurological deficit and CT of the head 2 have been unremarkable for acute process Subjective Principal diagnosis: Altered mental status Interval history: She is awake and alert today. She says that she still groggy and does not have a clear recollection of what paola into the hospital. She is hungry and wanting to eat. She denies headache chest pain or limb weakness. Overall is a very uneventful night per the nursing staff Objective PUL Vital signs: Last Vital Signs Temp 98.3 F 05/02/17 04:40 Pulse 77 05/02/17 06:00 Resp 16 05/02/17 06:00 BP 160/83 05/02/17 06:00 Pulse Ox 93 05/02/17 06:00 General appearance: no acute distress Eyes: nonicteric ENT: oropharynx moist Auscultation: bilateral: clear Cardiovascular: regular rate and rhythm Gastrointestinal: normoactive bowel sounds, soft, non-tender Integumentary: normal Extremities: no cyanosis, other (She has trace bilateral lower show any edema) Musculoskeletal: no deformities normal mental status, non-focal exam mood appropriate Results - Laboratory Findings CBC and BMP: 05/02/17 02:30 05/02/17 02:30 ABG ABG pH 7.46 pH Units (7.32-7.45) H 05/01/17 03:54 ABG pCO2 32 mmHg (35-45) L 05/01/17 03:54 ABG pO2 79 mmHg (85-104) L 05/01/17 03:54 ABG O2 Saturation 96 % (95-98) 05/01/17 03:54 Abnormal lab findings: Abnormal lab results RBC 3.74 M/mcL (3.82-4.97) L 05/02/17 02:30 Hgb 9.8 g/dL (11.5-15.4) L 05/02/17 02:30 Hct 33.0 % (35.3-44.9) L 05/02/17 02:30 MCH 26.2 pg (28.0-33.3) L 05/02/17 02:30 MCHC 29.7 g/dL (31.6-35.5) L 05/02/17 02:30 RDW 26.9 % (11.5-14.5) H 05/02/17 02:30 Nucleated RBCs/100 WBC 0.3 /100 WBC (0) H 05/02/17 02:30 Polychromasia 1+ (Not Present) A 05/02/17 02:30 Poikilocytosis 1+ (Not Present) A 04/30/17 04:40 Anisocytosis 2+ (Not Present) A 05/02/17 02:30 Macrocytosis Present (Not Present) A 04/30/17 04:40 Zita Cells 2+ (Not Present) A 04/30/17 04:40 Acanthocytes (Spur) 1+ (Not Present) A 04/30/17 04:40 ABG pH 7.46 pH Units (7.32-7.45) H 05/01/17 03:54 ABG pCO2 32 mmHg (35-45) L 05/01/17 03:54 ABG pO2 79 mmHg (85-104) L 05/01/17 03:54 Sodium 147 mEq/L (136-145) H 05/02/17 02:30 Potassium 2.8 mEq/L (3.5-5.1) L 05/02/17 02:30 Chloride 113 mEq/L (98-107) H 05/02/17 02:30 BUN 7 mg/dL (8-23) L 05/02/17 02:30 Calculated Osmolality 301 (280-300) H 05/02/17 02:30 Calcium 7.4 mg/dL (8.6-10.3) L 05/02/17 02:30 Troponin I 0.05 ng/mL (< 0.04) H* 04/30/17 04:40 Serum Total Protein 4.8 g/dL (6.4-8.9) L 04/30/17 04:40 Albumin 2.4 g/dL (3.5-5.7) L 04/30/17 04:40 Albumin/Globulin Ratio 1.0 (1.1-2.2) L 04/30/17 04:40 - Microbiology Findings Microbiology Findings: Microbiology, Last 48 Hours 04/29/17 17:32 Blood Culture - Preliminary Peripheral Venipuncture No growth. 04/29/17 17:32 Blood Culture - Preliminary Peripheral Venipuncture No growth. - Clinical Findings Intake & Output: Intake & Output 05/01/17 05/01/17 05/02/17 15:59 23:59 07:59 Intake Total 1230 / 1230 200 / 200 1000 / 1000 Output Total 2475 / 2475 1300 / 1300 1700 / 1700 Balance -1245 / -1245 -1100 / -1100 -700 / -700 Weight 86.8 kg Consult Discharge Plan - Plan Referrals: Zuleima Starks, AUTOMOTIVE SALES ASSOCIATE [Primary Care Provider] -
[2017-05-02 09:35] LABS: Magnesium 1.3 mg/dL (1.6-2.6)
[2017-05-02] MEDS: Pantoprazole 40 MG VIAL IVP SCH (10:57)
[2017-05-02] MEDS: Chlorhexidine Rinse 15 ML MOUTHWASH MM SCH ×2 (10:57→21:10)
--- NOTE | 2017-05-02 13:27 | Neurology Progress Note ---
Date of Encounter: 05/02/17 Time of Encounter: 08:00 Assessment and Plan (1) Encephalopathy Current Visit: Yes Status: Acute Patient is back to her baseline no evidence of any acute stroke on clinical exam as well as on MRI of the brain She is scheduled for EEG this morning we will follow up With the results At this time it is not clear that indeed she had a stroke or a seizure certainly no clinical sign of a stroke neither any signs of infarct on MRI of the brain Suggest to continue to treat underlying metabolic and infectious etiology as you already Subjective Principal diagnosis: Altered mental status Interval history: Patient seen as an follow-up she seemed to be doing well and denies any other new focal motor weakness no confusion no other motor deficit noted back to her baseline Objective - Constitutional Vitals: Temp Pulse Resp BP Pulse Ox 98.9 F 83 19 173/89 92 05/02/17 07:30 05/02/17 12:16 05/02/17 12:09 05/02/17 11:59 05/02/17 12:09 - Neurological Exam Motor Examination: Present: grossly full strength in all extremities Reflexes: Biceps: 1+, Triceps: 1+, Brachioradialis: 1+, Patella: 1+, Achilles: 1 + Mental Status Examination: Present: awake, alert, oriented to person, oriented to place Cranial nerve examination: Present: PERRL, EOMI, visual morales intact, no facial asymmetry is present, no dysarthria Results - Laboratory Findings CBC and BMP: 05/02/17 02:30 05/02/17 02:30 Abnormal lab findings: Abnormal lab results RBC 3.74 M/mcL (3.82-4.97) L 05/02/17 02:30 Hgb 9.8 g/dL (11.5-15.4) L 05/02/17 02:30 Hct 33.0 % (35.3-44.9) L 05/02/17 02:30 MCH 26.2 pg (28.0-33.3) L 05/02/17 02:30 MCHC 29.7 g/dL (31.6-35.5) L 05/02/17 02:30 RDW 26.9 % (11.5-14.5) H 05/02/17 02:30 Nucleated RBCs/100 WBC 0.3 /100 WBC (0) H 05/02/17 02:30 Polychromasia 1+ (Not Present) A 05/02/17 02:30 Poikilocytosis 1+ (Not Present) A 04/30/17 04:40 Anisocytosis 2+ (Not Present) A 05/02/17 02:30 Macrocytosis Present (Not Present) A 04/30/17 04:40 Zita Cells 2+ (Not Present) A 04/30/17 04:40 Acanthocytes (Spur) 1+ (Not Present) A 04/30/17 04:40 ABG pH 7.46 pH Units (7.32-7.45) H 05/01/17 03:54 ABG pCO2 32 mmHg (35-45) L 05/01/17 03:54 ABG pO2 79 mmHg (85-104) L 05/01/17 03:54 Sodium 147 mEq/L (136-145) H 05/02/17 02:30 Potassium 2.8 mEq/L (3.5-5.1) L 05/02/17 02:30 Chloride 113 mEq/L (98-107) H 05/02/17 02:30 BUN 7 mg/dL (8-23) L 05/02/17 02:30 Calculated Osmolality 301 (280-300) H 05/02/17 02:30 Calcium 7.4 mg/dL (8.6-10.3) L 05/02/17 02:30 Magnesium 1.3 mg/dL (1.6-2.6) L 05/02/17 02:30 Troponin I 0.05 ng/mL (< 0.04) H* 04/30/17 04:40 Serum Total Protein 4.8 g/dL (6.4-8.9) L 04/30/17 04:40 Albumin 2.4 g/dL (3.5-5.7) L 04/30/17 04:40 Albumin/Globulin Ratio 1.0 (1.1-2.2) L 04/30/17 04:40 - Diagnostic Findings Additional findings: MRI of the brain did not show any acute abnormality No evidence of metastatic disease or an acute infarct. 2. Cerebral and cerebellar parenchymal volume loss with mild chronic microvascular white matter ischemic disease. 3. There is scattered paranasal sinus disease, with greatest involvement in the ethmoid air cells and sphenoid sinuses, increased in severity. 4. There are small bilateral mastoid effusions. Consult Discharge Plan - Plan Referrals: Zuleima Starks CNP [Primary Care Provider] -
[2017-05-02 14:32] LABS: BUN/Creatinine Ratio 9 (6-26); Blood Urea Nitrogen 6 mg/dL (8-23); Calcium 7.7 mg/dL (8.6-10.3); Carbon Dioxide 23 mEq/L (23-29); Chloride 111 mEq/L (98-107); Glucose 104 mg/dL (70-105); Magnesium 1.6 mg/dL (1.6-2.6); Osmolality,Calculated 298 (280-300); Sodium 145 mEq/L (136-145); eGFR For African Americans > 60 (> 60); eGFR For Non-African Americans > 60 (> 60)
[2017-05-02] MEDS ORDERED: Potassium Chloride Elixir 20 MEQ/15 ML UDC PO ONE (15:03)
--- NOTE | 2017-05-02 16:25 | EEG/EMG/Oth Biometrics Report ---
EEG Procedure Report Date of procedure: 05/02/17 EEG Procedure: Routine EEG Procedure Note: Routine 21-channel digital EEG was obtained to rule out any seizure activity or focal abnormalities. FINDINGS: Background rhythm during awake stage shows well-organized, well- developed, average voltage 8 to 9 hertz alpha activity in the posterior regions. It blocks with eye opening and it is bilaterally synchronous and symmetrical. No [id number] discharges or any lateralizing abnormalities are seen. Photic stimulation did not produce any abnormalities. Hyperventilation was performed for 3 minutes. No abnormalities were found during the procedure. Intermittent EMG artifacts were seen. Stage II sleep was not achieved. IMPRESSION: Normal awake study. No epileptiform discharges or any other paroxysmal activities or focal abnormalities seen. Clinical correlation is recommended.
--- NOTE | 2017-05-02 18:13 | Oncology Inp Consult Note ---
Date of Encounter: 05/03/17 Time of Encounter: 17:00 Assessment and Plan (1) Renal cell cancer Status: Acute Assessment and plan: Metastatic kidney cancer-on pazopanib--hold further treatment due to recent acute events. Seizure/alteration in mental status, imaging data, EEG reviewed. Neurology recommendations noted. PAzopanib to be held (rare side effect sof seizure/PML). She was unable to tolerate 4 tab (800mg daily), will switch her to alternate therapy Thoracentesis/pleurex catheter to be considered for outpatient schedule Plan as above discussed with her, she will followed up as scheduled in clinic. Qualifiers: Qualified Code(s): C64.9 - Malignant neoplasm of unspecified kidney, except renal pelvis - Data of Consult Requesting Physician: Bradley Beatty MD Primary Care Provider: Zuleima Starks CNP - Consult Narrative Reason for consult: Renal cell cancer--seizures History of present illness: Ms. Mitchell is a 71 year old female with med hx significant for hypertension, hyperlipidemia, diabetes, endometrial hyperplasia with minimal atypia, bursitis of knee, right osteoarthritis of knee, Diverticulitis, who developed renal insuff, hypercalcemia in Feb, CT imaging of the abdomen showed 14 cm mass in the left kidney likely primary renal cell carcinoma, retroperitoneal lymphadenopathy and pulmonary nodules right-sided pleural effusion. She was transferred to [place] for biopsy and workup. The patient underwent a thoracentesis on 2016, urinalysis was negative. She further underwent a biopsy of the pleural-based lesion measuring 2.4 cm in size which was nondiagnostic but suspicious for metastatic renal cell carcinoma. She then underwent a CT-guided biopsy of the left kidney mass which reports is consistent with clear cell kidney cancer. Patient has had CT chest abdomen and pelvis here at [place], images reviewed. She had a CT scan of the head for delivery episodes which did not show any metastatic lesion. It appears patient did not have a MRI but had a bone scan reports of which is not available for me to review. CT scan of the chest abdomen pelvis showed a 15 cm lobulated heterogeneous mass occupying left renal parenchyma mild left retroperitoneal lymphadenopathy scattered pleural and parenchymal nodules moderate to large right pleural effusion cystic lesion in the left adnexa2.7 cm in sizeconsolidation in the right middle and lower lobe. 11/25 MRI lumbar spine--disc bulge and lumbar facet arthropathy. She started pazopanib 03/11/17. Dose reduction from 4 tablets to 2 tablets daily was made due to GI intolerance. Patient also had required thoracentesis for pleural effusion recommendation. She developed seizure episode, was noted to have electrolyte imbalance, MRI of the brain did not show any evidence of metastatic disease. Oncology consulted to give input regarding continuation of her medication for RCC. Past Med Surg Social Fam HX - Past Medical History Medical history: arthritis, cancer, diabetes, hyperlipidemia, hypertension Psychiatric history: no psych history - Social History Smoking Status: Former smoker Smokeless Tobacco Status: No Alcohol use: none Drug use: none - Family History Mother Living Status: Hx Family Cancer: Yes Brother Living Status: Hx Family Cancer: Yes Sister Hx Family Cancer: Yes Medications and Allergies Lisinopril [Zestril] 40 mg PO DAILY 02/17/17 [History] Multivit-Min/Iron Fum/Folic AC [Zennh-Vayzhvf-Zkhtdybn Tablet] 1 tab PO DAILY [History] Simvastatin [Zocor] 40 mg PO HS 02/17/17 [History] metFORMIN [Glucophage] 500 mg PO BIDWM 02/17/17 [History] Ondansetron [Zofran] 8 mg PO Q8HR PRN #90 tablet 03/24/17 [Rx] Promethazine [Phenergan] 25 mg PO Q8HR PRN #90 tablet 03/24/17 [Rx] LORazepam [Ativan] 0.5 mg PO BID PRN #60 tablet 04/22/17 [Rx] Megestrol Acetate [Megace] 400 mg PO BID #400 mls 04/22/17 [Rx] OxyCODONE Immed Rel [Roxicodone 5 MG] 10 mg PO BID PRN #60 tablet 04/22/17 [Rx] 3 Allergy/AdvReac Type Severity Reaction Status Date / Time No Known Allergies Allergy Verified 04/22/17 10:48 Review of systems: nausea with her meds. PAin and SOB related to fluid Oncology - Exam - Constitutional Vitals: Temp Pulse Resp BP Pulse Ox 98.7 F 71 27 178/88 93 05/02/17 12:00 05/02/17 17:47 05/02/17 17:47 05/02/17 17:50 05/02/17 17:47 General appearance: obese - Head Head exam: Present: atraumatic, normal inspection - Eye Eye exam: Present: normal appearance - ENT ENT exam: Present: mucous membranes moist - Neck Neck exam: Present: full ROM - Respiratory Respiratory exam: Present: CTAB - Cardiovascular Cardiovascular exam: Present: +S1, +S2 - GI/Abdominal GI/Abdominal exam: Present: normal bowel sounds, soft - Extremities Exam Extremities exam: Present: normal inspection - Neurological Exam Neurological exam: Present: alert, oriented X3 - Psychiatric Psychiatric exam: Present: normal affect - Skin Skin exam: Present: normal color Oncology - Results Labs: Short CBC 05/02/17 Range/Units 02:30 WBC 6.1 (4.3-11.1) K/mcL Hgb 9.8 L (11.5-15.4) g/dL Hct 33.0 L (35.3-44.9) % Plt Count 177 (140-400) K/mcL Neutrophils # 3.7 (1.6-8.9) K/mcL BMP 05/02/17 05/02/17 02:30 14:00 Sodium 147 H 145 Potassium 2.8 L 3.0 L Chloride 113 H 111 H Carbon Dioxide 24 23 BUN 7 L 6 L Creatinine 0.62 0.65 Glucose 74 104 Calcium 7.4 L 7.7 L Consult Discharge Plan - Plan Referrals: Zuleima Starks, HOME ENERGY AUDITOR [Primary Care Provider] -
[2017-05-03] MEDS: Insulin LISPRO 300 UNITS/3 ML VIAL SQ SCH ×6 (00:17→20:35)
[2017-05-03] MEDS: Lacri-Lube 3.5 GM TUBE BOTH EYES SCH ×6 (00:18→21:18)
[2017-05-03] MEDS: Piperacillin/Tazobactam 3.375 GM/200 ML BAG IVPB SCH ×3 (02:45→19:45)
[2017-05-03] MEDS: *HR* Heparin 5,000 UNIT/ML VIAL SQ SCH ×3 (05:54→21:44)
[2017-05-03] MEDS: Chlorhexidine Rinse 15 ML MOUTHWASH MM SCH ×2 (09:23→21:45)
--- NOTE | 2017-05-03 14:34 | Neurology Progress Note ---
Date of Encounter: 05/03/17 Time of Encounter: 06:45 Assessment and Plan (1) Encephalopathy Current Visit: Yes Status: Acute Patient is back to her baseline no evidence of any stroke on exam or on EEG no evidence of any seizures no focal motor deficit no further neurological workup is indicated she will be following with her primary care as well as with oncology Subjective Principal diagnosis: Altered mental status Interval history: Patient seen as an follow-up she seemed to be doing well and denies any other new focal motor weakness no confusion no other motor deficit noted back to her baseline EEG is negative as well Objective - Constitutional Vitals: Temp Pulse Resp BP Pulse Ox 99.3 F 66 18 178/75 93 05/03/17 11:26 05/03/17 11:26 05/03/17 11:26 05/03/17 11:26 05/03/17 11:26 - Neurological Exam Sensorimotor examination: Present: intact Motor Examination: Present: grossly full strength in all extremities Motor examination - left side: 5/5: deltoids, biceps, triceps, wrist flexion, wrist extension, hip flexors, filler feeder, quadriceps, tibialis Anterior, toe extension (EHL), plantarflexion Sensation intact: Present: intact Mental Status Examination: Present: awake, alert, oriented to person, oriented to place, oriented to time, follows commands appropriately, answers questions appropriately, no agnosia, no aphasia, no aproxia Cranial nerve examination: Present: PERRL, EOMI, visual morales intact, corneal reflexes brisk symmetrically, sensory to face intact, mastication intact, no facial asymmetry is present, no dysarthria, hearing is intact symmetrically, soft palate elevates bilaterally upon phonation, gag reflex intact, flexes SCM and trapezius muscles symmetrically with full power, tongue protrudes midline, no atrophy or facial fasiculations present Cerebellar examination: Present: no dysmetria Results - Laboratory Findings CBC and BMP: 05/02/17 02:30 05/02/17 14:00 Abnormal lab findings: Abnormal lab results RBC 3.74 M/mcL (3.82-4.97) L 05/02/17 02:30 Hgb 9.8 g/dL (11.5-15.4) L 05/02/17 02:30 Hct 33.0 % (35.3-44.9) L 05/02/17 02:30 MCH 26.2 pg (28.0-33.3) L 05/02/17 02:30 MCHC 29.7 g/dL (31.6-35.5) L 05/02/17 02:30 RDW 26.9 % (11.5-14.5) H 05/02/17 02:30 Nucleated RBCs/100 WBC 0.3 /100 WBC (0) H 05/02/17 02:30 Polychromasia 1+ (Not Present) A 05/02/17 02:30 Poikilocytosis 1+ (Not Present) A 04/30/17 04:40 Anisocytosis 2+ (Not Present) A 05/02/17 02:30 Macrocytosis Present (Not Present) A 04/30/17 04:40 Zita Cells 2+ (Not Present) A 04/30/17 04:40 Acanthocytes (Spur) 1+ (Not Present) A 04/30/17 04:40 ABG pH 7.46 pH Units (7.32-7.45) H 05/01/17 03:54 ABG pCO2 32 mmHg (35-45) L 05/01/17 03:54 ABG pO2 79 mmHg (85-104) L 05/01/17 03:54 Potassium 3.0 mEq/L (3.5-5.1) L 05/02/17 14:00 Chloride 111 mEq/L (98-107) H 05/02/17 14:00 BUN 6 mg/dL (8-23) L 05/02/17 14:00 POC Glucose 92 (58-89) H 05/03/17 11:46 Calcium 7.7 mg/dL (8.6-10.3) L 05/02/17 14:00 Troponin I 0.05 ng/mL (< 0.04) H* 04/30/17 04:40 Serum Total Protein 4.8 g/dL (6.4-8.9) L 04/30/17 04:40 Albumin 2.4 g/dL (3.5-5.7) L 04/30/17 04:40 Albumin/Globulin Ratio 1.0 (1.1-2.2) L 04/30/17 04:40 Consult Discharge Plan - Plan Referrals: Zuleima Starks, [employer] HOUSE TENDER [Primary Care Provider] -
--- NOTE | 2017-05-03 16:26 | Internal Med Progress Note ---
Date of Encounter: 05/03/17 Time of Encounter: 16:22 - Assessment and plan (1) Obtunded Current Visit: Yes Status: Acute Assessment and plan: no clear etiology could be due to dehydration + chemo induced metabolic encephalopathy improved (2) Acute respiratory failure Current Visit: Yes Status: Acute Assessment and plan: s/p VDRF Reviewed ABG - No signs of hypercapneic resp failure cont Duoneb PRN She did have extensive h/o smoking.. quit 8 yrs ago Qualifiers: Respiratory failure complication: hypoxia Qualified Code(s): J96.01 - Acute respiratory failure with hypoxia (3) Encephalopathy Current Visit: Yes Status: Acute Assessment and plan: could be due to dehydration + chemo induced metabolic encephalopathy improved MRI of Brain - No infarction EEG - no seizure activity Neuro on board.. no further work up recommended (4) Hypertension Current Visit: Yes Status: Chronic Assessment and plan: stable Qualifiers: Qualified Code(s): I10 - Essential (primary) hypertension (5) Renal cell cancer Current Visit: No Status: Acute Assessment and plan: Heme onc on board Will talk to Dr. Green about continuing Chemo or holding it for few days Qualifiers: Qualified Code(s): C64.9 - Malignant neoplasm of unspecified kidney, except renal pelvis - Subjective Interval history: Ms. Mitchell is a 71 year old female with med hx significant for hypertension, hyperlipidemia, diabetes, endometrial hyperplasia with minimal atypia, bursitis of knee, right osteoarthritis of knee, Diverticulitis, who developed renal insuff, hypercalcemia in Feb, later she underwent a CT-guided biopsy of the left kidney mass which reports is consistent with clear cell kidney cancer. Currently pt was on active chemo therapy. With this past history, pt was found unresponsive at home by her and pt was brought into ER. Eventually pt got admitted into ICU and got intubated. Pt had CT of Head, MRI of BRain, EEG - all the work up came back as negative. she was extuvated in ICU and never found out the etiology for her unresponsiveness. Now she was transferred to [facility] for further care. Pt was seen and examined at bed side and talked to the family and answered all their questions. - Constitutional Vitals: Temp Pulse Resp BP Pulse Ox 99.3 F 66 18 178/75 93 05/03/17 11:26 05/03/17 11:26 05/03/17 11:26 05/03/17 11:26 05/03/17 11:26 General appearance: Present: A&O X 3, pleasant, no acute distress - Head Head exam: Present: atraumatic, normal inspection - Neck Neck exam general surgery: Present: supple - Respiratory Respiratory exam: Present: decreased breath sounds. Absent: rales, respiratory distress, rhonchi, wheezes - Cardiovascular Cardiovascular exam: Present: +S1, +S2. Absent: tachycardia - GI/Abdominal GI/Abdominal exam: Present: normal bowel sounds, soft. Absent: rebound, rigid, tenderness - Extremities Exam Extremities exam: Absent: calf tenderness, pedal edema, tenderness - Back Exam Back exam: Absent: CVA tenderness (L), CVA tenderness (R) Internal Medicine: Result - Labs CBC & Chem 7: 05/02/17 02:30 05/02/17 14:00 - ABG Interpretation ABG results: ABG ABG pH 7.46 pH Units (7.32-7.45) H 05/01/17 03:54 ABG pCO2 32 mmHg (35-45) L 05/01/17 03:54 ABG pO2 79 mmHg (85-104) L 05/01/17 03:54 ABG O2 Saturation 96 % (95-98) 05/01/17 03:54 Consult Discharge Plan - Plan Referrals: Zuleima Starks WELFARE AIDE [Primary Care Provider] -
[2017-05-03] MEDS: Dexmedetomidine HCl 400 MCG/100 ML MLS IVC SCH (19:22)
[2017-05-03] MEDS: Ringers Solution, Lactated 1,000 ML IVC SCH ×3 (19:22→19:33)
[2017-05-04] MEDS: Piperacillin/Tazobactam 3.375 GM/200 ML BAG IVPB SCH ×2 (03:09→11:47)
[2017-05-04 03:57] LABS: Basophils % 0.4 %; Eosinophils # 0.1 K/mcL (0.0-0.6); Eosinophils % 2.2 %; Hematocrit 31.1 % (35.3-44.9); Hemoglobin 9.6 g/dL (11.5-15.4); Immature Granulocytes % 0.8 % (0-4); Lymphocytes # 1.7 K/mcL (0.6-4.6); Lymphocytes % 35.2 %; Mean Corpuscular HGB Conc 30.9 g/dL (31.6-35.5); Mean Corpuscular Hemoglobin 27.4 pg (28.0-33.3); Mean Corpuscular Volume 88.6 fL (83.0-100.0); Mean Platelet Volume 10.3 fL (9.4-12.4); Monocytes # 0.4 K/mcL (0.0-1.3); Monocytes % 8.3 %; Neutrophils # 2.6 K/mcL (1.6-8.9); Platelet Count 217 K/mcL (140-400); Red Blood Count 3.51 M/mcL (3.82-4.97); Red Cell Distribution Width 26.7 % (11.5-14.5); Segmented Neutrophils % 53.1 %
[2017-05-04 04:23] LABS: Anisocytosis 2+ (Not Present); Platelet Estimate Normal (Normal); Poikilocytosis 2+ (Not Present)
[2017-05-04 06:10] LABS: BUN/Creatinine Ratio 7 (6-26); Blood Urea Nitrogen 5 mg/dL (8-23); Calcium 7.5 mg/dL (8.6-10.3); Carbon Dioxide 24 mEq/L (23-29); Chloride 115 mEq/L (98-107); Glucose 93 mg/dL (70-105); Osmolality,Calculated 303 (280-300); Potassium 2.9 mEq/L (3.5-5.1); Sodium 148 mEq/L (136-145); eGFR For African Americans > 60 (> 60); eGFR For Non-African Americans > 60 (> 60)
[2017-05-04] MEDS: *HR* Heparin 5,000 UNIT/ML VIAL SQ SCH (06:11)
[2017-05-04 07:17] VITALS: BP 166/76
[2017-05-04] MEDS: Insulin LISPRO 300 UNITS/3 ML VIAL SQ SCH ×2 (08:20→11:48)
[2017-05-04] MEDS: Chlorhexidine Rinse 15 ML MOUTHWASH MM SCH (08:20)
--- NOTE | 2017-05-04 10:41 | Discharge Summary ---
Date of Encounter: 05/04/17 Time of Encounter: 10:26 - Discharge Diagnosis (1) Obtunded Priority: Primary Status: Acute (2) Acute respiratory failure Priority: Primary Status: Acute Qualifiers: Respiratory failure complication: hypoxia Qualified Code(s): J96.01 - Acute respiratory failure with hypoxia (3) Encephalopathy Priority: Primary Status: Acute (4) Hypertension Priority: Secondary Status: Chronic Qualifiers: Qualified Code(s): I10 - Essential (primary) hypertension (5) Renal cell cancer Priority: Secondary Status: Acute Qualifiers: Qualified Code(s): C64.9 - Malignant neoplasm of unspecified kidney, except renal pelvis - Discharge Medications Prescriptions: Amoxicillin/Clavulanate [Augmentin] 875 mg PO BIDWM #6 tablet Home Medications: Multivit-Min/Iron Fum/Folic AC [Dpsry-Oengcym-Upscckbb Tablet] 1 tab PO DAILY [History] Simvastatin [Zocor] 40 mg PO HS 02/17/17 [History] metFORMIN [Glucophage] 500 mg PO BIDWM 02/17/17 [History] Ondansetron [Zofran] 8 mg PO Q8HR PRN #90 tablet 03/24/17 [Rx] LORazepam [Ativan] 0.5 mg PO BID PRN #60 tablet 04/22/17 [Rx] Megestrol Acetate [Megace] 400 mg PO BID #400 mls 04/22/17 [Rx] Amoxicillin/Clavulanate [Augmentin] 875 mg PO BIDWM #6 tablet 05/04/17 [Rx] Lisinopril [Zestril] 20 mg PO DAILY #0 05/04/17 [Rx] Metoprolol [Lopressor] 25 mg PO BID tablet 05/04/17 [Rx] OxyCODONE Immed Rel [Roxicodone 5 MG] 5 mg PO BID PRN #60 tablet 05/04/17 [Rx] Allergies/Adverse Reactions: 3 Allergy/AdvReac Type Severity Reaction Status Date / Time No Known Allergies Allergy Verified 04/22/17 10:48 Procedures/tests Complete & Pending: Procedures Performed prior 72 hours Category Date Time Status MR head wo/w con [MR] Routine MRI 05/02/17 12:41 Completed Date of admission: 04/29/17 15:56 Primary care physician: Zuleima Starks CNP Consults: 04/29/17 17:02 Consult to Nutrition [CONS] Routine Comment: Consulting Provider: NUTRITION Reason for Dietary Consult: MST Score Consult to Pastoral Services [CONS] Routine Comment: 05/02/17 11:15 Consult to Interpret Exam [CONS] Routine Consulting Provider: Gwen Tellez I Consult to Interpret Exam: Interpret EEG 05/02/17 13:48 Consult to Oncology [CONS] Routine Consulting Provider: On[facility] Reason for Consult: chemotherapy dosing Call Completed: No 05/03/17 10:55 Consult to [employer] W[employer] [CONS] Routine Reason for SW Consult: Discharge needs 05/03/17 16:36 Consult to Physical Therapy [CONS] Routine Comment: Evaluate, develop and implement POC Reason for Consult: deconditioning OT [Consult to Occupational Therapy] [CONS] Routine Comment: Evaluate, develop and implement POC Reason for Consult: deconditioning - Patient Status Disposition: Home, Self-Care Condition: Good Overall status at discharge: patient is back to baseline - Discharge Instructions Follow Up With: Zuleima Starks CNP [Primary Care Provider] - Isabel Reynolds MD [Partnered Physician] - Additional Instructions: Please stop taking Phenergan Please stop taking your chemo pills until you see your Heme Onc - Diet and Activity Activity: increase activity as tolerated Diet: low salt diet Hospital course: Ms. Mitchell is a 71 year old female with med hx significant for hypertension, hyperlipidemia, diabetes, endometrial hyperplasia with minimal atypia, bursitis of knee, right osteoarthritis of knee, Diverticulitis, who developed renal insuff, hypercalcemia in Feb, later she underwent a CT-guided biopsy of the left kidney mass which reports is consistent with clear cell kidney cancer. Currently pt was on active chemo therapy. With this past history, pt was found unresponsive at home by her and pt was brought into ER. Eventually pt got admitted into ICU and got intubated. Pt had CT of Head, MRI of BRain, EEG - all the work up came back as negative. she was extubated in ICU and never found out the etiology for her unresponsiveness. Now she was transferred to [facility] for further care. Reviewed her ABG upon admission which did not show any signs of hypercapnea. Blood cx x2 no growth noticed. Pt was seen and examined at bed side and talked to the family and answered all their questions y/d. After getting the extensive history from pt, I learned she was on chemo therapy for her renal adenocarcinoma, she developed nausea / vomiting / dehydration so Heme Onc did cut back on her chem dose a week prior to this incident. Also noticed pt is on Ativan, Phenergan, Oxycodonne 10mg tabs at home. So I counseled the pt to cut back on Oxycodone dose and stop taking phenergan. I did talk to Heme Onc who recommend to stop taking Chemo tabs Pazopanib, and follow up with them as an out pt. Did discuss these changes with pt and family. Pt is able to ambulate well in room well with out any issues. - Time Spent with Patient Total time spent providing and/or coordinating discharge services: Greater than 30 minutes (spent 35 minutes on d/c summary) - Constitutional Vitals: Temp Pulse Resp BP Pulse Ox 98.3 F 70 15 166/76 93 05/04/17 07:16 05/04/17 07:16 05/04/17 07:16 05/04/17 07:16 05/04/17 07:16 General appearance: Present: A&O X 3, pleasant, no acute distress - Head Head exam: Present: atraumatic, normal inspection - Neck Neck exam general surgery: Present: supple - Respiratory Respiratory exam: Present: decreased breath sounds. Absent: rales, respiratory distress, rhonchi, wheezes - Cardiovascular Cardiovascular exam: Present: RRR, +S1, +S2. Absent: tachycardia - Extremities Exam Extremities exam: Absent: calf tenderness, pedal edema, tenderness - Back Exam Back exam: Absent: CVA tenderness (L), CVA tenderness (R) - Neurological Exam Neurological exam: Present: alert, CN II-XII intact, oriented X3, no focal deficits - Psychiatric Psychiatric exam: Present: normal affect, normal mood
--- NOTE | 2017-05-04 12:22 | Physician Discharge Referral ---
Home Health/Hosp Referral Info Transfer to: Home Health Provider in Charge Post Discharge: PCP - Diagnosis (1) Obtunded Status: Acute (2) Acute respiratory failure Status: Acute (3) Encephalopathy Status: Acute (4) Hypertension Status: Chronic (5) Renal cell cancer Status: Acute - Respiratory Orders Smoking Cessation: Smoking cessation has been advised. For more information, call the [place] Tobacco Quit Line at 4-879-ZPQJ-NOW. - Services Needed Following services are medically necessary services: Nursing, Physical Therapy, Occupational Therapy - Transfer Medications Prescriptions: Amoxicillin/Clavulanate [Augmentin] 875 mg PO BIDWM #6 tablet Home Medications: Multivit-Min/Iron Fum/Folic AC [Isvqh-Jezpipg-Rqnmevng Tablet] 1 tab PO DAILY [History] Simvastatin [Zocor] 40 mg PO HS 02/17/17 [History] metFORMIN [Glucophage] 500 mg PO BIDWM 02/17/17 [History] Ondansetron [Zofran] 8 mg PO Q8HR PRN #90 tablet 03/24/17 [Rx] LORazepam [Ativan] 0.5 mg PO BID PRN #60 tablet 04/22/17 [Rx] Megestrol Acetate [Megace] 400 mg PO BID #400 mls 04/22/17 [Rx] Amoxicillin/Clavulanate [Augmentin] 875 mg PO BIDWM #6 tablet 05/04/17 [Rx] Lisinopril [Zestril] 20 mg PO DAILY #0 05/04/17 [Rx] Metoprolol [Lopressor] 25 mg PO BID tablet 05/04/17 [Rx] OxyCODONE Immed Rel [Roxicodone 5 MG] 5 mg PO BID PRN #60 tablet 05/04/17 [Rx] Allergies/Adverse Reactions: 3 Allergy/AdvReac Type Severity Reaction Status Date / Time No Known Allergies Allergy Verified 04/22/17 10:48 Certification: Further, I certify that my clinical findings support that this patient is homebound (i.e. absences from home require considerable and taxing effort and are for medical reasons or [facility] or infrequently or short duration when for other reasons) because: Homebound Reason: Patient requires assistance of a person or device to safely leave home Attestation: My signature below is to certify that this patient is under my care and that I, or nurse practitioner, or a physician's conventions assistant working with me, has a face-to -face encounter with this patient.
[2017-05-04] MEDS ORDERED: Insulin LISPRO 300 UNITS/3 ML VIAL SQ SCH (21:00)
== END 2017-05-04 12:48 | disposition home or self-care (01) | DRG 208 ==
LOC: ICNU 15:56 → SUATTDRO 15:56 → 3ANU 05-02 19:30
PROVIDERS: ADMIT Internal Medicine Pulmonary Disease; ATTEND Family Medicine

== ENCOUNTER 2019-04-07 22:54 | Inpatient (IN) ==
[2019-04-08] MEDS ORDERED: Potassium Chloride Elixir 20 MEQ/15 ML UDC PO ONE (03:03)
[2019-04-08] MEDS ORDERED: Ondansetron ODT 4 MG TAB.RAPDIS SL PRN (03:04)
[2019-04-08] MEDS ORDERED: Naloxone 0.4 MG/ML INJ IVP PRN (03:04)
[2019-04-08] MEDS ORDERED: Gadolinium Contrast Agent (WT Based) IV PRN (03:04)
[2019-04-08] MEDS ORDERED: Acetaminophen 325 MG TABLET PO PRN (03:04)
[2019-04-08] MEDS ORDERED: 0.9 % Sodium Chloride 1,000 ML IVC SCH (03:15)
[2019-04-08 05:21] LABS: Basophils % 0.2 %; Eosinophils # 0.1 K/mcL (0.0-0.6); Eosinophils % 1.9 %; Hematocrit 33.9 % (35.3-44.9); Hemoglobin 11.2 g/dL (11.5-15.4); Immature Granulocytes % 0.2 % (0-4); Lymphocytes # 0.6 K/mcL (0.6-4.6); Lymphocytes % 13.8 %; Mean Corpuscular Hemoglobin 31.8 pg (28.0-33.3); Mean Corpuscular Volume 96.3 fL (83.0-100.0); Mean Platelet Volume 10.1 fL (9.4-12.4); Monocytes # 0.3 K/mcL (0.0-1.3); Neutrophils # 3.3 K/mcL (1.6-8.9); Platelet Count 135 K/mcL (140-400); Red Blood Count 3.52 M/mcL (3.82-4.97); Red Cell Distribution Width 17.4 % (11.5-14.5); Segmented Neutrophils % 77.9 %; White Blood Count 4.2 K/mcL (4.3-11.1)
[2019-04-08 05:35] LABS: INR 1.1; Prothrombin Time 12.5 Seconds (9.4-12.1)
[2019-04-08 05:45] LABS: % Iron Saturation 12 % (15-50); Alanine Aminotransferase 11 Units/L (7-52); Albumin 3.1 g/dL (3.5-5.7); Albumin/Globulin Ratio 1.4 (1.1-2.2); Alkaline Phosphatase 91 Units/L (34-104); Aspartate Amino Transferase 20 Units/L (13-39); BUN/Creatinine Ratio 14 (6-26); Bilirubin,Total 0.5 mg/dL (0.3-1.0); Blood Urea Nitrogen 10 mg/dL (8-23); C-Reactive Protein 22 mg/L (Less than 10); Calcium 8.1 mg/dL (8.6-10.3); Carbon Dioxide 24 mEq/L (23-29); Chloride 110 mEq/L (98-107); Chol/HDL Ratio 3.7 (0-4.9); Cholesterol 122 mg/dL (< 200); Globulin 2.2 g/dL (2.4-3.5); Glucose 104 mg/dL (70-105); HDL Cholesterol 33 mg/dL (40-59); Iron 25 mcg/dL (50-170); LDL Cholesterol,Calculated 64 mg/dL (0-99); Magnesium 1.6 mg/dL (1.6-2.6); Osmolality,Calculated 291 (280-300); Phosphorous 2.1 mg/dL (2.7-4.5); Potassium 3.7 mEq/L (3.5-5.1); Sodium 141 mEq/L (136-145); Total Protein 5.3 g/dL (6.4-8.9); Transferrin 153 mg/dL (203-362); Triglycerides 125 mg/dL (< 150); eGFR For African Americans > 60 (> 60); eGFR For Non-African Americans > 60 (> 60)
[2019-04-08 05:57] LABS: Thyroid Stimulating Hormone 8.111 mcIU/mL (0.340-5.600)
[2019-04-08 06:02] LABS: Ferritin 194 ng/mL (10-120)
[2019-04-08 06:07] LABS: Folate 19.8 ng/mL (3.0-16.0)
[2019-04-08 06:08] LABS: Vitamin B12 654 pg/mL (250-1100)
[2019-04-08] MEDS: *HR* Heparin 5,000 UNIT/ML VIAL SQ SCH (18:03)
[2019-04-08] MEDS: 0.9 % Sodium Chloride 1,000 ML IVC SCH (19:33)
[2019-04-08 19:37] LABS: Adenovirus F 40/41 PCR Not detected (Not detect); Astrovirus PCR Not detected (Not detect); C.difficile Toxin A/B Gene PCR Not detected (Not detect); Campylobacter by PCR Not detected (Not detect); Cryptosporidium by PCR Not detected (Not detect); Cyclospora cayetanensis PCR Not detected (Not detect); E. coli O157 by PCR Not detected (Not detect); Entamoeba histolytica PCR Not detected (Not detect); Enteroaggregative E.coli(EAEC) Not detected (Not detect); Enteropathogenic E.coli(EPEC) Not detected (Not detect); Enterotoxigenic E.coli (ETEC) Not detected (Not detect); Giardia lamblia PCR Not detected (Not detect); Norovirus GI/GII PCR Not detected (Not detect); Plesiomonas shigelloides PCR Not detected (Not detect); Rotavirus A PCR Not detected (Not detect); Salmonella PCR Not detected (Not detect); Sapovirus PCR Not detected (Not detect); Shig/EnteroinvasiveE coli EIEC Not detected (Not detect); Shigalike tox-prod E coli STEC Not detected (Not detect); Vibrio PCR Not detected (Not detect); Vibrio cholerae PCR Not detected (Not detect); Yersinia enterocolitica PCR Not detected (Not detect)
[2019-04-09] MEDS: *HR* Heparin 5,000 UNIT/ML VIAL SQ SCH ×2 (05:58→18:11)
[2019-04-09 06:35] LABS: Hemoglobin 12.4 g/dL (11.5-15.4); Mean Corpuscular HGB Conc 31.8 g/dL (31.6-35.5); Mean Corpuscular Volume 100.5 fL (83.0-100.0); Mean Platelet Volume 10.3 fL (9.4-12.4); Platelet Count 147 K/mcL (140-400); Red Blood Count 3.88 M/mcL (3.82-4.97); Red Cell Distribution Width 17.7 % (11.5-14.5)
[2019-04-09 06:54] LABS: BUN/Creatinine Ratio 9 (6-26); Blood Urea Nitrogen 7 mg/dL (8-23); Calcium 8.1 mg/dL (8.6-10.3); Carbon Dioxide 26 mEq/L (23-29); Chloride 109 mEq/L (98-107); Glucose 83 mg/dL (70-105); Osmolality,Calculated 299 (280-300); Potassium 3.2 mEq/L (3.5-5.1); Sodium 146 mEq/L (136-145); eGFR For African Americans > 60 (> 60); eGFR For Non-African Americans > 60 (> 60)
[2019-04-09] MEDS: Aspirin Enteric Coated 81 MG Tablet PO SCH (08:31)
[2019-04-09 10:27] LABS: Estimated Average Glucose 97 mg/dl
[2019-04-09] MEDS ORDERED: *HR* OxyCODONE Immed Rel 5 MG TABLET PO PRN (15:39)
[2019-04-09] MEDS: 0.9 % Sodium Chloride 1,000 ML IVC SCH (19:47)
[2019-04-10] MEDS: 0.9 % Sodium Chloride 1,000 ML IVC SCH (01:31)
[2019-04-10 04:49] LABS: Hematocrit 40.7 % (35.3-44.9); Hemoglobin 13.7 g/dL (11.5-15.4); Mean Corpuscular HGB Conc 33.7 g/dL (31.6-35.5); Mean Corpuscular Hemoglobin 32.4 pg (28.0-33.3); Mean Corpuscular Volume 96.2 fL (83.0-100.0); Mean Platelet Volume 10.3 fL (9.4-12.4); Platelet Count 150 K/mcL (140-400); Red Blood Count 4.23 M/mcL (3.82-4.97); Red Cell Distribution Width 17.8 % (11.5-14.5); White Blood Count 6.3 K/mcL (4.3-11.1)
[2019-04-10 05:07] LABS: BUN/Creatinine Ratio 12 (6-26); Blood Urea Nitrogen 7 mg/dL (8-23); Calcium 7.9 mg/dL (8.6-10.3); Carbon Dioxide 23 mEq/L (23-29); Chloride 113 mEq/L (98-107); Glucose 85 mg/dL (70-105); Osmolality,Calculated 293 (280-300); Potassium 3.2 mEq/L (3.5-5.1); Sodium 143 mEq/L (136-145); eGFR For African Americans > 60 (> 60); eGFR For Non-African Americans > 60 (> 60)
[2019-04-10] MEDS: *HR* Heparin 5,000 UNIT/ML VIAL SQ SCH (05:32)
[2019-04-10] MEDS: Aspirin Enteric Coated 81 MG Tablet PO SCH (08:16)
[2019-04-10] MEDS: Lisinopril 20 MG TABLET PO SCH (08:16)
[2019-04-10] MEDS ORDERED: *HR* Heparin 5,000 UNIT/ML VIAL IVP PRN (09:36)
[2019-04-10] MEDS ORDERED: *HR* Heparin 5,000 UNIT/ML VIAL IVP ONE (09:36)
[2019-04-10 10:36] LABS: Hematocrit 39.2 % (35.3-44.9); Hemoglobin 13.1 g/dL (11.5-15.4); Mean Corpuscular HGB Conc 33.4 g/dL (31.6-35.5); Mean Corpuscular Hemoglobin 31.8 pg (28.0-33.3); Mean Corpuscular Volume 95.1 fL (83.0-100.0); Mean Platelet Volume 10.1 fL (9.4-12.4); Platelet Count 180 K/mcL (140-400); Red Blood Count 4.12 M/mcL (3.82-4.97); Red Cell Distribution Width 17.8 % (11.5-14.5); White Blood Count 6.5 K/mcL (4.3-11.1)
[2019-04-10 10:39] LABS: INR 1.1; Prothrombin Time 12.7 Seconds (9.4-12.1)
[2019-04-10] MEDS: Heparin 25,000 UNIT/250 ML D5W 25,000 UNIT/250 ML IV.SOLN IVC SCH (11:05)
[2019-04-11 01:59] LABS: Hemoglobin 13.7 g/dL (11.5-15.4); Mean Corpuscular HGB Conc 33.4 g/dL (31.6-35.5); Mean Corpuscular Hemoglobin 32.2 pg (28.0-33.3); Mean Corpuscular Volume 96.5 fL (83.0-100.0); Mean Platelet Volume 10.2 fL (9.4-12.4); Platelet Count 143 K/mcL (140-400); Red Blood Count 4.25 M/mcL (3.82-4.97); Red Cell Distribution Width 17.9 % (11.5-14.5); White Blood Count 7.6 K/mcL (4.3-11.1)
[2019-04-11 02:36] LABS: BUN/Creatinine Ratio 13 (6-26); Blood Urea Nitrogen 8 mg/dL (8-23); Calcium 7.9 mg/dL (8.6-10.3); Carbon Dioxide 15 mEq/L (23-29); Chloride 114 mEq/L (98-107); Glucose 86 mg/dL (70-105); Osmolality,Calculated 292 (280-300); Potassium 3.8 mEq/L (3.5-5.1); Sodium 142 mEq/L (136-145); eGFR For African Americans > 60 (> 60); eGFR For Non-African Americans > 60 (> 60)
[2019-04-11] MEDS: *HR* Heparin 5,000 UNIT/ML VIAL IVP PRN (02:56)
[2019-04-11] MEDS: Aspirin Enteric Coated 81 MG Tablet PO SCH (09:40)
[2019-04-11] MEDS: Lisinopril 20 MG TABLET PO SCH (09:40)
[2019-04-11 11:10] LABS: Heparin anti-factor XA UFH 0.73 IU/mL (0.30-0.70)
[2019-04-11] MEDS: Heparin 25,000 UNIT/250 ML D5W 25,000 UNIT/250 ML IV.SOLN IVC SCH (13:26)
[2019-04-11 14:30] LABS: INR 1.2; Prothrombin Time 13.1 Seconds (9.4-12.1)
[2019-04-11] MEDS ORDERED: *HR* Warfarin 5 MG TABLET PO ONE (18:00)
[2019-04-11] MEDS ORDERED: Warfarin perPT PO PRN (18:00)
[2019-04-12 03:18] LABS: Hematocrit 37.5 % (35.3-44.9); Hemoglobin 12.5 g/dL (11.5-15.4); Mean Corpuscular HGB Conc 33.3 g/dL (31.6-35.5); Mean Corpuscular Hemoglobin 32.6 pg (28.0-33.3); Mean Corpuscular Volume 97.7 fL (83.0-100.0); Platelet Count 169 K/mcL (140-400); Red Blood Count 3.84 M/mcL (3.82-4.97)
[2019-04-12 03:26] LABS: INR 1.1; Prothrombin Time 12.4 Seconds (9.4-12.1)
[2019-04-12 03:38] LABS: BUN/Creatinine Ratio 12 (6-26); Blood Urea Nitrogen 8 mg/dL (8-23); Calcium 8.3 mg/dL (8.6-10.3); Carbon Dioxide 23 mEq/L (23-29); Chloride 113 mEq/L (98-107); Glucose 98 mg/dL (70-105); Osmolality,Calculated 300 (280-300); Potassium 3.6 mEq/L (3.5-5.1); Sodium 146 mEq/L (136-145); eGFR For African Americans > 60 (> 60); eGFR For Non-African Americans > 60 (> 60)
[2019-04-12] MEDS: Aspirin Enteric Coated 81 MG Tablet PO SCH (09:15)
[2019-04-12] MEDS: Lisinopril 20 MG TABLET PO SCH (09:15)
[2019-04-12] MEDS ORDERED: Lidocaine Viscous Oral Soln 15 ML SOLUTION MM PRN (10:58)
[2019-04-12] MEDS ORDERED: *HR* Midazolam HCl 5 MG/5 ML VIAL IVP PRN (10:59)
[2019-04-12] MEDS ORDERED: 0.9 % Sodium Chloride 500 ML IVC ONE (10:59)
[2019-04-12] MEDS: *HR* FentaNYL (PF) 100 MCG/2 ML VIAL IVP PRN ×2 (11:50→11:55)
[2019-04-12] MEDS: 0.9 % Sodium Chloride 1,000 ML IVC SCH (12:35)
[2019-04-12] MEDS ORDERED: *HR* Warfarin 2.5 MG TABLET PO ONE (18:00)
[2019-04-13] MEDS: Heparin 25,000 UNIT/250 ML D5W 25,000 UNIT/250 ML IV.SOLN IVC SCH (01:26)
[2019-04-13 03:21] LABS: Hematocrit 34.1 % (35.3-44.9); Hemoglobin 11.1 g/dL (11.5-15.4); Mean Corpuscular HGB Conc 32.6 g/dL (31.6-35.5); Mean Corpuscular Hemoglobin 32.5 pg (28.0-33.3); Mean Corpuscular Volume 99.7 fL (83.0-100.0); Mean Platelet Volume 10.4 fL (9.4-12.4); Platelet Count 158 K/mcL (140-400); Red Blood Count 3.42 M/mcL (3.82-4.97); White Blood Count 6.5 K/mcL (4.3-11.1)
[2019-04-13 03:24] LABS: INR 1.3; Prothrombin Time 14.9 Seconds (9.4-12.1)
[2019-04-13 03:40] LABS: Blood Urea Nitrogen 8 mg/dL (8-23); Calcium 8.2 mg/dL (8.6-10.3); Carbon Dioxide 22 mEq/L (23-29); Chloride 114 mEq/L (98-107); Glucose 89 mg/dL (70-105); Osmolality,Calculated 296 (280-300); Potassium 3.3 mEq/L (3.5-5.1); Sodium 144 mEq/L (136-145)
[2019-04-13 04:18] LABS: BUN/Creatinine Ratio 13 (6-26); eGFR For African Americans > 60 (> 60); eGFR For Non-African Americans > 60 (> 60)
[2019-04-13] MEDS: *HR* Heparin 5,000 UNIT/ML VIAL IVP PRN (04:23)
[2019-04-13] MEDS: Aspirin Enteric Coated 81 MG Tablet PO SCH (08:15)
[2019-04-13] MEDS: Lisinopril 20 MG TABLET PO SCH (08:15)
[2019-04-13 14:58] LABS: Hematocrit 34.9 % (35.3-44.9); Hemoglobin 11.4 g/dL (11.5-15.4); Mean Corpuscular HGB Conc 32.7 g/dL (31.6-35.5); Mean Corpuscular Hemoglobin 32.3 pg (28.0-33.3); Mean Corpuscular Volume 98.9 fL (83.0-100.0); Mean Platelet Volume 10.2 fL (9.4-12.4); Platelet Count 195 K/mcL (140-400); Red Blood Count 3.53 M/mcL (3.82-4.97); Red Cell Distribution Width 17.8 % (11.5-14.5); White Blood Count 4.9 K/mcL (4.3-11.1)
[2019-04-13] MEDS ORDERED: *HR* Warfarin 2.5 MG TABLET PO ONE (18:00)
[2019-04-14 02:54] LABS: Hematocrit 36.8 % (35.3-44.9); Hemoglobin 11.9 g/dL (11.5-15.4); Mean Corpuscular HGB Conc 32.3 g/dL (31.6-35.5); Mean Corpuscular Hemoglobin 31.9 pg (28.0-33.3); Mean Corpuscular Volume 98.7 fL (83.0-100.0); Mean Platelet Volume 10.2 fL (9.4-12.4); Platelet Count 200 K/mcL (140-400); Red Blood Count 3.73 M/mcL (3.82-4.97); Red Cell Distribution Width 17.8 % (11.5-14.5); White Blood Count 6.2 K/mcL (4.3-11.1)
[2019-04-14 02:58] LABS: INR 1.7; Prothrombin Time 18.8 Seconds (9.4-12.1)
[2019-04-14 03:11] LABS: BUN/Creatinine Ratio 14 (6-26); Blood Urea Nitrogen 9 mg/dL (8-23); Calcium 8.3 mg/dL (8.6-10.3); Carbon Dioxide 21 mEq/L (23-29); Chloride 111 mEq/L (98-107); Glucose 87 mg/dL (70-105); Osmolality,Calculated 300 (280-300); Potassium 3.2 mEq/L (3.5-5.1); Sodium 146 mEq/L (136-145); eGFR For African Americans > 60 (> 60); eGFR For Non-African Americans > 60 (> 60)
[2019-04-14] MEDS: Heparin 25,000 UNIT/250 ML D5W 25,000 UNIT/250 ML IV.SOLN IVC SCH (09:14)
[2019-04-14] MEDS: Aspirin Enteric Coated 81 MG Tablet PO SCH (09:15)
[2019-04-14] MEDS: Lisinopril 20 MG TABLET PO SCH (09:15)
[2019-04-14] MEDS ORDERED: *HR* Warfarin 2.5 MG TABLET PO ONE (18:00)
[2019-04-15 03:25] LABS: Hematocrit 34.8 % (35.3-44.9); Hemoglobin 11.3 g/dL (11.5-15.4); Mean Corpuscular HGB Conc 32.5 g/dL (31.6-35.5); Mean Corpuscular Hemoglobin 32.3 pg (28.0-33.3); Mean Corpuscular Volume 99.4 fL (83.0-100.0); Mean Platelet Volume 10.1 fL (9.4-12.4); Platelet Count 210 K/mcL (140-400); Red Cell Distribution Width 17.9 % (11.5-14.5); White Blood Count 4.9 K/mcL (4.3-11.1)
[2019-04-15 03:26] LABS: INR 2.1
[2019-04-15 03:43] LABS: BUN/Creatinine Ratio 13 (6-26); Blood Urea Nitrogen 9 mg/dL (8-23); Calcium 8.2 mg/dL (8.6-10.3); Carbon Dioxide 24 mEq/L (23-29); Chloride 112 mEq/L (98-107); Glucose 96 mg/dL (70-105); Osmolality,Calculated 301 (280-300); Potassium 3.3 mEq/L (3.5-5.1); Sodium 146 mEq/L (136-145); eGFR For African Americans > 60 (> 60); eGFR For Non-African Americans > 60 (> 60)
[2019-04-15] MEDS: Aspirin Enteric Coated 81 MG Tablet PO SCH (08:09)
[2019-04-15] MEDS: Lisinopril 20 MG TABLET PO SCH (08:09)
[2019-04-15] MEDS: Heparin 25,000 UNIT/250 ML D5W 25,000 UNIT/250 ML IV.SOLN IVC SCH (11:40)
[2019-04-15 15:40] VITALS: BP 149/69
[2019-04-15] MEDS ORDERED: *HR* Warfarin 2.5 MG TABLET PO ONE (18:00)
[2019-04-15] MEDS ORDERED: *HR* Heparin 5,000 UNIT/ML VIAL ONE (18:25)
== END 2019-04-15 18:49 | DRG 64 ==
LOC: 3BNU
PROVIDERS: ADMIT Internal Medicine; ATTEND Internal Medicine